=== PATIENT | male | born 1985 | race Caucasian/White ===

== ENCOUNTER 2023-02-08 21:34 | Emergency (ER) | payer MEDICARE, SELFPAY ==
--- NOTE | ~2023-02-08 | CT_ITS ---
EXAMINATION: CT brain wo con DATE: 02/08/2023 22:44 INDICATION: fall with significant head trauma . TECHNIQUE: Computed tomography (CT) of the head was performed without intravenous contrast. The mA wa s adjusted according to patient size. Iterative reconstruction technique was employed. The dose-lengt h product was 681.00 mGy-cm. COMPARISON: 07/13/2019. FINDINGS: 6 mm hyperdensity at the inferomedial right frontal lobe, suspicious for subarachnoid hemorrhage. No hydrocephalus, mass, or herniation. No acute ischemic infarct. Unremarkable dural venous sinus attenuation. No acute osseous abnormality. The aerated spaces are clear. IMPRESSION: 6 mm focus of subarachnoid hemorrhage at the inferomedial right frontal lobe. No other acute intracra nial process detected. Results reported telephonically to Franny Sears PA-C by Dr. Rivera at 11:02 PM on 02/08/2023. Reviewed, dictated and finalized at location K. IMPRESSION: 6 mm focus of subarachnoid hemorrhage at the inferomedial right frontal lobe. N o other acute intracranial process detected. Results reported telephonically to Franny Sears PA-C by Dr. Rivera at 11 :02 PM on 02/08/2023.
--- NOTE | ~2023-02-08 | CT_ITS ---
EXAMINATION: CT facial & cervical spine wo DATE: 02/08/2023 22:45 INDICATION: neck trauma TECHNIQUE: Computed tomography (CT) of the maxillofacial region and cervical spine was performed with out intravenous contrast. Automated exposure control and iterative reconstruction technique were empl oyed. The dose-length product was 243.84 mGy-cm. COMPARISON: None FINDINGS: CERVICAL: Vertebral Body Alignment: Intact. Craniocervical and atlantoaxial alignment: Mild degenerative change. Alignment intact. Osseous structures/fracture: No evidence of a lytic or blastic process in the visualized spine. No e vidence of acute fracture. Old C7 spinous process fracture. Cervical soft tissues: The paraspinal soft tissues planes are maintained. Degenerative changes: Mild degenerative changes, without severe neural foraminal or central canal lowell rowing. FACE: Soft Tissues: No significant superficial soft tissue swelling. Facial bones: Nondisplaced right nasal bone fracture. No lytic or blastic process. Eyes: The globes are intact. The soft tissue planes of the orbits are maintained. Paranasal Sinuses: The visualized aerated spaces are clear. Foreign Bodies: No radiopaque foreign bodies. Other Findings: Severe dental caries and periodontal disease. Mild motion artifact at the level of th e mandible. Nondisplaced fracture of the root of the first left maxillary premolar. IMPRESSION: No acute fracture or traumatic malalignment in the cervical spine. Nondisplaced right nasal bone fracture. Transverse fracture of the root of the left first maxillary premolar. Severe dental caries and periodontal disease with mild motion artifact at the mandible, both of which could obscure additional traumatic injury to the teeth. Correlate with physical exam. Reviewed, dictated and finalized at location K. IMPRESSION: No acute fracture or traumatic malalignment in the cervical spine. Nondisplaced right nasal bone fracture. Transverse fracture of the root of the left first maxillary premolar. Severe dental caries and periodontal disease with mild motion artifact at the m andible, both of which could obscure additional traumatic injury to the teeth. Correlate with physical exam.
[2023-02-08 21:32] VITALS: BP 128/77; PULSE 91; RESP 18; TEMP 36.7; O2SAT 100
[2023-02-08 21:45] VITALS: BP 119/74; PULSE 84; RESP 15; O2SAT 100
[2023-02-08 22:00] VITALS: BP 120/71; PULSE 92; RESP 19; O2SAT 100
[2023-02-08 22:15] VITALS: BP 117/75; PULSE 93; RESP 25; O2SAT 100
--- NOTE | 2023-02-08 22:23 | ED.SEIZURE ---
HPI - Seizure General Chief Complaint: Seizure Stated Complaint: seizure Time Seen by Provider: 02/08/23 22:07 History of Present Illness HPI Narrative: Patient is a 37-year-old male with history of seizure disorder on Keppra and Depakote, autism spectrum disorder, here for evaluation after a seizure. Patient is amnestic to the event and is currently postictal which limits history. He states he has been taking his seizure medicine as directed. His neurologist is at [facility]. He denies any fevers, chills, headache, nausea or vomiting. He has lacerations to the right nose, right temporal area and inferior chin. Tetanus is up to date. Related Data Home Medications Medication Instructions Recorded Confirmed divalproex 500 mg tablet,delayed 500 mg PO Q12H 07/13/19 07/13/19 release (Depakote) lamotrigine 150 mg tablet 150 mg PO BID 07/13/19 07/13/19 divalproex 500 mg tablet,delayed 500 mg PO 02/08/23 release (Depakote) levetiracetam 750 mg tablet 750 mg PO BID 02/08/23 (Keppra) lorazepam 0.5 mg tablet 0.5 mg PO HS 02/08/23 Allergies Allergy/AdvReac Type Severity Reaction Status Date / Time amoxicillin [From Augmentin] Allergy Rash Verified 07/13/19 13:26 caffeine Allergy Seizure Verified 02/08/23 21:42 carbamazepine [From Tegretol] Allergy Rash Verified 07/13/19 13:26 clavulanic acid Allergy Rash Verified 07/13/19 13:26 [From Augmentin] Review of Systems Review of Systems: Gen: Denies fevers or chills Eyes: Denies eye pain or visual change ENT: Denies congestion Respiratory: Denies shortness of breath or cough CV: Denies chest pain or palpitations GI: Denies abdominal pain nausea, emesis or diarrhea : denies burning, urgency, frequency or hematuria Musculoskeletal: Denies back pain or muscle pain Neuro: Reports seizure Skin: Laceration Except as documented, all other systems reviewed and negative [facility] Past Medical History Medical History Autism Seizure disorder Social History Social History (Updated 07/13/19 @ 16:20 by Fabiola Bautista, [employer]) Smoking status: Never smoker Alcohol intake: never Substance use: never Living arrangements: with family Gender identity (if verbalized by the patient): Male Exam Narrative: APPEARANCE: No acute distress, nontoxic, resting in bed EYES: EOMI HEENT: the right pupil is 3 mm and delayed to react to light. the left pupil is 2 mm and readily reactive. EOMi RESPIRATORY: No respiratory distress Clear to auscultation bilaterally with no rhonchi wheezing or rales. CARDIOVASCULAR: Regular rate and rhythm without murmurs rubs or gallops. ABDOMINAL: Soft, nontender, nondistended, no rebound or guarding MUSCULOSKELETAL: Moves all extremities. No clubbing, cyanosis or edema. NEURO: Awake and alert. The right pupil is 3 mm and sluggish to react. left pupil is 2 mm. SKIN: there is a 1 cm laceration to the right temporal region with active bleeding. there is a large laceration to the right external nare with active bleeding, part of the nare is attached from the nose bridge. there is a 3 cm gaping laceration to the inferior chin. PSYCHIATRIC: Normal affect/mood Course Vital Signs Vital signs: Vital Signs Temperature 98.1 F 02/08/23 21:32 Pulse Rate 91 02/08/23 21:32 Respiratory Rate 18 02/08/23 21:32 Blood Pressure 128/77 02/08/23 21:32 Pulse Oximetry 100 02/08/23 21:32 Oxygen Delivery Room Air 02/08/23 21:32 Temperature 98.1 F 02/08/23 21:32 Pulse Rate 109 H 02/09/23 00:15 Respiratory Rate 15 02/09/23 00:15 Blood Pressure 121/83 02/09/23 00:15 Pulse Oximetry 97 02/09/23 00:15 Oxygen Delivery Room Air 02/08/23 21:32 MDM - Seizure MDM Narrative Medical decision making narrative: 37-year-old male with history of ASD and seizure disorder here for evaluation after typical seizure-like activity today with si
--- NOTE | 2023-02-08 23:36 | PC.NURSE ---
Laceration to right eyebrow, right nares, and chin cleansed with wound cleaner greaser and left open to air while waiting for repair.
[2023-02-08 23:50] VITALS: BP 123/71; PULSE 100; RESP 22; O2SAT 99
[2023-02-08 23:51] VITALS: BP 123/71; PULSE 99; RESP 18; O2SAT 99
[2023-02-09] VITALS: BP 118/80; PULSE 105; RESP 14; O2SAT 97
[2023-02-09 00:15] VITALS: BP 121/83; PULSE 109; PULSE 94; RESP 15; RESP 18; O2SAT 97; O2SAT 99
[2023-02-09 00:29] LABS: Valproic Acid 100.4 ug/mL (50-120)
[2023-02-12 17:22] LABS: Levetiracetam Keppra 29.8 mcg/mL (6.0-46.0)
== END 2023-02-09 00:20 | disposition short-term general hospital (02) ==
PROVIDERS: Emergency Provider Physician Assistant; PCP Family Medicine
DX: S06.6XAA Traumatic subarachnoid hemorrhage with loss of consciousness status unknown, initial encounter (principal); S01.21XA Laceration without foreign body of nose, initial encounter; S01.81XA Laceration without foreign body of other part of head, initial encounter; G40.909 Epilepsy, unspecified, not intractable, without status epilepticus; F84.0 Autistic disorder; W18.39XA Other fall on same level, initial encounter
CPT/HCPCS: 36415; 70450; 70486; 72125; 80164; 80177; 99285